=== PATIENT | male | born 1955 | race Caucasian/White ===

== ENCOUNTER 2024-05-07 16:44 | Emergency (ER) | payer OTHER, SELFPAY ==
[2024-05-07 17:34] VITALS: BP 189/95; PULSE 63; RESP 20; TEMP 36.5; O2SAT 95; BMI 46.3
--- NOTE | 2024-05-07 17:43 | EDNOTE_ITS ---
ED Dental RME/HPI General Chief complaint: Dental/Oral/Throat Stated complaint: [facility] [place] Time Seen by Provider: 05/07/24 17:24 Arrival date/time: 05/07/24 16:44 68-year-old male acute on chronic dental pain presents emergency department complaint of dental pain today Limitations: no limitations Related Data Previous Rx's ?Medication ?Instructions ?Recorded clindamycin HCl 150 mg capsule 450 mg (3 x 150 mg) PO TID 7 days 05/07/24 #63 caps clindamycin HCl 150 mg capsule 450 mg (3 x 150 mg) PO TID Dental 05/07/24 infection 10 days #90 caps hydrocodone 5 mg-acetaminophen 325 1 tab PO Q6H PRN pa in 4 days #14 05/07/24 mg tablet tabs ibuprofen 600 mg tablet 600 mg PO Q6H PRN pain 5 day s #20 05/07/24 tabs ibuprofen 800 mg tablet 800 mg PO TID PRN pain #30 t abs 05/07/24 Allergies Allergy/AdvReac Type Severity Reaction Status Date / Time No Known Allergies Allergy Verified 05/07/24 16:48 Review of Systems Review of Systems Systems Reviewed: All systems reviewed, normal except as documented Constitutional Constitutional: Reports system reviewed and no additional complaints, except as documented, Denies fever(s) and Denies headache(s) Eyes Eyes: Reports system reviewed and no additional complaints, except as documented and Denies blurry vision ENT Ears, Nose, Mouth, and Throat: Reports system reviewed and no additional complaints, except as documented, Reports dental pain, Denies headache(s), Denies nasal congestion and Denies nasal discharge Cardiovascular Cardiovascular: Reports system reviewed and no additional complaints, except as documented, Denies chest pain and Denies dyspnea Respiratory Respiratory: Reports system reviewed and no additional complaints, except as documented, Denies chest congestion, Denies cough and Denies dyspnea Gastrointestinal Gastrointestinal: Reports system reviewed and no additional complaints, except as documented and Denies abdominal pain Integumentary/Breasts Skin/Breast: Reports system reviewed and no additional complaints, except as documented and Denies rash Neurologic Neurologic: Reports system reviewed and no additional complaints, except as documented, Reports as per HPI and Denies headache(s) Past Medical History Social History SMOKING STATUS: Former smoker ED Exam General Limitations: Present no limitations General appearance: Present alert and in no apparent distress Head Head exam: Present atraumatic Eye Eye exam: Present normal appearance, PERRL and EOMI ENT ENT exam: Present mucous membranes moist Expanded ENT Exam Teeth exam: Present dental tenderness # Throat exam: Absent tonsillar erythema or tonsillomegaly Neck Neck exam: Present normal inspection, full ROM and trachea midline Chest Chest inspection: Present normal inspection and symmetric chest wall rise Respiratory Respiratory exam: Present normal lung sounds bilaterally Cardiovascular Cardiovascular exam: Present regular rate, normal rhythm and normal heart sounds Abdominal Exam Abdominal exam: Present soft and normal bowel sounds Extremities Exam Extremities exam: Present normal inspection and full ROM Back Exam Back exam: Present normal inspection and full ROM Neurological Exam Neurological exam: Present alert, oriented X3 and CN II-XII intact Psychiatric Psychiatric exam: Present normal affect and normal mood Skin Skin exam: Present warm, dry, intact and normal color Course Quality Measures none Vital Signs Vital signs: Vital Signs Temperature 97.7 F 05/07/24 17:34 Pulse Rate 63 05/07/24 17:34 Respiratory Rate 20 05/07/24 17:34 Blood Pressure 189/95 H 05/07/24 17:34 Pulse Oximetry (%) 95 05/07/24 17:34 Oxygen Delivery Method Room Air 05/07/24 17:34 O2 saturation 95% room air with normal limits Dental / Oral MDM Narrative MDM Narrative:: 68-year-old male acute on chronic dental pain presents emergency department complaint of dental pain today On exam patient does not appear toxic no acute distress patient is no difficulty breathing or swallowing On exam patient does have dental caries and poor dental health Patient was given a course of antibiotics and pain medication patient is no evidence of abscess definitively at this time Patient discharged home in no distress to follow-up with primary care doctor in the next 24 to 48 hours and for any worsening symptoms to return to the ER immediately Patient data External records reviewed:: [facility] previous records Clinical information provided by:: patient Social determinants that could affect healthcare access:: none Patient has the following chronic illnesses:: See history How is presenting disease/condition affected by chronic disease/condition?: caused by Evaluation data The following diagnostics were reviewed and interpreted by me:: other (specify) (N/A) Lab and/or radiology exams considered but not ordered:: Consider not ordered Interpretation Summary: N/A Medications / Prescriptions Medications or Prescriptions considered but not ordered:: Given Medication administrations:: Given Consultations Consultation(s) initiated? (list below): No Diagnosis Dental Differential Diagnosis: gingival abscess, dental caries and toothache Most likely diagnosis given after review of the tests above:: Dental pain Admission Indicated Admission indicated?: not indicated Admission Request Was there a request for admission?: No Disposition Plan Disposition Plan: Discharge Discharge Attestation Discharge Attestation: The patient and all family members were given an opportunity to ask questions and understood the discharge instructions. Discharge instructions specifically effects, indications for sooner follow up or return to the emergency department, and the expected course of current diagnosis. Patient condition: Stable Discharge Plan Plan Patient Disposition: HOME (Self Care) Disposition Comment: stable Prescriptions/Referrals Prescriptions/Med Rec: New ibuprofen 800 mg tablet 800 mg PO TID PRN (Reason: pain) Qty: 30 0RF clindamycin HCl 150 mg capsule 450 mg PO TID 7 Days Qty: 63 0RF clindamycin HCl 150 mg capsule 450 mg PO TID 10 Days Qty: 90 0RF ibuprofen 600 mg tablet 600 mg PO Q6H PRN (Reason: pain) 5 Days Qty: 20 0RF hydrocodone-acetaminophen 5-325 mg tablet 1 tab PO Q6H MDD 4 tabs PRN (Reason: pain) 4 Days Qty: 14 0RF Rx Instructions: Patient cannot drive or operate heavy machinery after taking this medication Problem List Clinical Impression: Toothache Patient/Caregiver Discharge Instructions Education Materials: ED Dental Pain Additional Instructions: Please follow up with your primary care doctor in the next 24-48hrs for any worsening symptoms return here immediately Print Language: French Stand Alone Forms: Eusebiashaylee Taylor Info., Patient Portal Info Letter PA/LIBRARY CATALOGING TECHNICIAN Supervising Physician PA/GULSHAN Supervising Physician: dr young
== END 2024-05-07 18:00 | disposition home or self-care (01) ==
LOC: SERX 18:04
PROVIDERS: Emergency Provider Family Medicine
DX: K08.89 Other specified disorders of teeth and supporting structures (principal)
CPT/HCPCS: 99281